=== PATIENT | female | born 1955 | race Caucasian/White ===

== ENCOUNTER 2016-12-13 11:00 | Outpatient (CLI) | payer BC | END 2016-12-13 12:00 | disposition home or self-care (01) | LOC: RAD 11:00 | DX: M19.071 Primary osteoarthritis, right ankle and foot (principal); M19.072 Primary osteoarthritis, left ankle and foot ==

== ENCOUNTER 2017-04-04 09:07 | Outpatient (CLI) | payer BC | END 2017-04-04 22:32 | disposition home or self-care (01) | LOC: RAD 09:07 | DX: M85.89 Other specified disorders of bone density and structure, multiple sites (principal); M81.0 Age-related osteoporosis without current pathological fracture ==

== ENCOUNTER 2017-12-31 08:03 | Outpatient (CLI) | payer BC ==
[2017-12-31 08:16] LABS: PLATELET COUNT 296 K/uL (152-353)
[2017-12-31 08:31] LABS: POTASSIUM 4.3 mmol/L (3.6-5.2)
== END 2017-12-31 23:22 | disposition home or self-care (01) ==
LOC: LABW 08:03
PROVIDERS: Internal Medicine Rheumatology
DX: Z00.01 Encounter for general adult medical examination with abnormal findings (principal)
CPT/HCPCS: 36415; 80053; 85027

== ENCOUNTER 2018-09-15 14:04 | Outpatient (CLI) | payer OTHER | END 2018-09-15 19:20 | disposition home or self-care (01) | LOC: US 14:04 | DX: Z13.6 Encounter for screening for cardiovascular disorders (principal) ==

== ENCOUNTER 2019-05-20 08:24 | Outpatient (CLI) | payer OTHER | END 2019-05-20 20:15 | disposition home or self-care (01) | LOC: RAD 08:24 | DX: M89.8X8 Other specified disorders of bone, other site (principal); N95.8 Other specified menopausal and perimenopausal disorders ==

== ENCOUNTER 2019-09-09 08:43 | Outpatient (CLI) | payer OTHER | END 2019-09-09 21:49 | disposition home or self-care (01) | LOC: LAB 08:43 | DX: B35.1 Tinea unguium (principal) | CPT/HCPCS: 36415; 84450; 84460 ==

== ENCOUNTER 2019-10-27 08:10 | Outpatient (CLI) | payer OTHER | END 2019-10-27 19:04 | disposition home or self-care (01) | LOC: LABW 08:10 | DX: B35.1 Tinea unguium (principal) | CPT/HCPCS: 36415; 84450; 84460 ==

== ENCOUNTER 2020-04-27 08:38 | Outpatient (CLI) | payer OTHER | END 2020-04-27 19:21 | disposition home or self-care (01) | LOC: MAMMO 08:38 | PROVIDERS: ATTEND Internal Medicine | DX: Z12.31 Encounter for screening mammogram for malignant neoplasm of breast (principal) ==

== ENCOUNTER 2021-05-02 12:30 | Outpatient (CLI) | payer OTHER ==
[2021-05-02 13:09] LABS: PLATELET COUNT 221 K/uL (152-353)
[2021-05-02 13:15] LABS: POTASSIUM 3.4 mmol/L (3.6-5.2)
== END 2021-05-02 19:02 | disposition home or self-care (01) ==
LOC: LABW 12:30
PROVIDERS: ATTEND Internal Medicine
DX: U07.1 COVID-19 (principal)
CPT/HCPCS: 36415; 80053; 85027; 85379; 86140

== ENCOUNTER 2021-05-26 08:34 | Outpatient (CLI) | payer OTHER | END 2021-05-26 20:01 | disposition home or self-care (01) | LOC: LABW 08:34 → RAD 08:34 | PROVIDERS: ATTEND Internal Medicine | DX: R05.3 Chronic cough (principal); R03.0 Elevated blood-pressure reading, without diagnosis of hypertension; R53.83 Other fatigue ==

== ENCOUNTER 2021-09-27 10:14 | Outpatient (CLI) | payer OTHER | END 2021-09-27 19:21 | disposition home or self-care (01) | LOC: RESP 10:14 | PROVIDERS: ATTEND Internal Medicine | DX: R07.89 Other chest pain (principal); R42 Dizziness and giddiness; R06.02 Shortness of breath; M79.602 Pain in left arm; H53.8 Other visual disturbances ==

== ENCOUNTER 2021-09-28 08:16 | Outpatient (CLI) | payer OTHER ==
[~2021-09-28] VITALS: Ht 160 cm; Wt 71.7 kg
== END 2021-09-28 19:51 | disposition home or self-care (01) ==
LOC: NM 08:16
PROVIDERS: ATTEND Internal Medicine
DX: R07.89 Other chest pain (principal); R42 Dizziness and giddiness; R06.02 Shortness of breath; M79.602 Pain in left arm; H53.8 Other visual disturbances
CPT/HCPCS: A9500; J2785

== ENCOUNTER 2022-06-02 10:30 | Emergency (ER) | payer OTHER ==
[~2022-06-02] VITALS: Ht 157.5 cm; Wt 68.0 kg
[2022-06-02 11:10] LABS: PLATELET COUNT 264 K/uL (152-353)
[2022-06-02 11:18] LABS: POTASSIUM 3.5 mmol/L (3.6-5.2)
[2022-06-02 12:05] VITALS: BP 117/46; TEMP 98.2
[2022-06-02] MEDS ORDERED: 904272561 PO (15:26)
== END 2022-06-02 12:05 | disposition home or self-care (01) ==
LOC: ED 10:30
PROVIDERS: Emergency Medicine
DX: B34.9 Viral infection, unspecified (principal); L03.312 Cellulitis of back [any part except buttock and flank]; Z20.822 Contact with and (suspected) exposure to COVID-19
CPT/HCPCS: 36415; 80048; 85027; 87502; 87635; 99283; U0003

== ENCOUNTER 2022-06-04 09:10 | Inpatient (IN) | payer OTHER ==
[2022-06-04] VITALS (7 sets, daily range): BP systolic 90–111; BP diastolic 52–61; TEMP 97.4–102.8; Ht 157.5 cm; Wt 77.8 kg
[~2022-06-04] VITALS: Ht 157.5 cm; Wt 77.8 kg
[~2022-06-04 09:10] MED LIST: 904272561 PO
[2022-06-04 10:23] LABS: PLATELET COUNT 244 K/uL (152-353)
[2022-06-04 10:31] LABS: POTASSIUM 3.2 mmol/L (3.6-5.2)
[2022-06-04] MEDS ORDERED: BENZONATATE100 MG PO (15:27)
[2022-06-04] MEDS ORDERED: CODEINE/GUAIFEN1 SOL PO (15:29)
[2022-06-04] MEDS ORDERED: BUDE1AER3 INH (15:30)
[2022-06-04] MEDS ORDERED: TRIA0.1C5 TOP (15:30)
[2022-06-04] MEDS ORDERED: IBU600 MG PO (15:31)
[2022-06-04] MEDS ORDERED: SIMV20TA2 PO (15:32)
[2022-06-04] MEDS ORDERED: METO25TA2 PO (15:32)
[2022-06-04] MEDS ORDERED: LATA0.00 OPTH (15:33)
[2022-06-04] MEDS ORDERED: AMLODIPINE BESYLATE PO (15:34)
[2022-06-04] MEDS ORDERED: FLONASE AL50 MCG/ACT NAS (15:34)
[2022-06-04] MEDS ORDERED: OMEP20CA PO (15:35)
[2022-06-04] MEDS ORDERED: ASPIRIN ADULT L81 M1 PO (15:36)
[2022-06-05 03:35] VITALS: BP 87/49; TEMP 98.7
[2022-06-05 05:54] LABS: PLATELET COUNT 226 K/uL (152-353)
[2022-06-05 06:10] LABS: POTASSIUM 3.6 mmol/L (3.6-5.2)
[2022-06-05 08:00] VITALS: BP 105/47; TEMP 98.1
[2022-06-05 12:00] VITALS: BP 98/54; TEMP 98.5
[2022-06-05 16:00] VITALS: BP 94/56; TEMP 98.4
[2022-06-05 19:36] VITALS: BP 101/51; TEMP 98.4
[2022-06-05 23:32] VITALS: BP 99/60; TEMP 97.7
[2022-06-06 03:31] VITALS: BP 104/62; TEMP 98.4
[2022-06-06 08:00] VITALS: BP 114/69; TEMP 98.2
[2022-06-06 11:34] VITALS: BP 105/60; TEMP 98
[2022-06-06 12:24] LABS: POTASSIUM 3.9 mmol/L (3.6-5.2)
[2022-06-06 16:00] VITALS: BP 101/55; TEMP 98.3
[2022-06-06 20:10] VITALS: BP 139/72; TEMP 98.6
[2022-06-07] VITALS: BP 117/71; BP 121/62; TEMP 98.5; TEMP 98.6
[2022-06-07 04:00] VITALS: BP 117/71; TEMP 98.5
[2022-06-07 08:00] VITALS: BP 120/71; TEMP 97.6
[2022-06-07 12:00] VITALS: BP 131/67; TEMP 98.1
[2022-06-07] MEDS ORDERED: BUDE1AER5 INH (14:43)
[2022-06-07 16:00] VITALS: BP 135/74; TEMP 98.2
== END 2022-06-07 16:43 | disposition short-term general hospital (02) | DRG 683 ==
LOC: ED 09:10 → MED/SURG 13:45
PROVIDERS: ADMIT Emergency Medicine Emergency Medical Services; ATTEND Internal Medicine
DX: N17.8 Other acute kidney failure (principal); E87.1 Hypo-osmolality and hyponatremia; L03.311 Cellulitis of abdominal wall; I10 Essential (primary) hypertension; E87.6 Hypokalemia; I95.89 Other hypotension; J44.9 Chronic obstructive pulmonary disease, unspecified; T45.515A Adverse effect of anticoagulants, initial encounter; Y92.89 Other specified places as the place of occurrence of the external cause; Z85.820 Personal history of malignant melanoma of skin
CPT/HCPCS: 36415; 36600; 80048; 80053; 80202; 81000; 82805; 83605; 83735; 84484; 85027; 87040; 87635; 93005; 96361; 96365; 96367; 96375; 99284; J2405; J3370; J3490; U0003